=== PATIENT | female | born 1970 | race Hispanic/Latino ===

== ENCOUNTER 2018-06-15 17:17 | Emergency (ER) | payer SELFPAY ==
[2018-06-15 18:06] VITALS: BP 124/71
[2018-06-15] MEDS ORDERED: MOTRIN PO ONE (20:25)
[2018-06-15] MEDS ORDERED: NORCO 5/325 PO ONE (20:25)
--- NOTE | 2018-06-15 20:30 | Emergency Department Report ---
HPI - General Chief Complaint: Dental/Oral Time Seen by Provider: 06/15/18 20:25 - HPI HPI: Room 35 The patient is a 47-year-old female presenting with a chief complaint dental pain. The patient states she broke one of her teeth and her sleep approximately 3 days ago. Patient states she's had continuous pain of tooth # 32 since the event. Patient states the pain radiates to the ear. Patient is to subjective fever. Patient states she has not yet seen a dentist. The patient currently gives her pain a score of 5/10 Location: [See above] Duration: [See above] Quality: Pain Severity: Last 10 Modifying factors: [see above] Context: [see above] Mode of transportation: [not driving] ED Past Medical Hx - Past Medical History Previous Medical History?: No - Surgical History Additional Surgical History: , left eye - Family History Family history: no significant - Social History Smoking Status: Former Smoker (none for over 10 years) Substance Use Type: None (denies illicit drug use) - Medications Home Medications: Home Medications Medication Instructions Recorded Confirmed Last Taken Type Amoxicillin [Amoxicillin TAB] 875 mg PO BID #20 tablet 04/09/14 Unknown Rx Prednisone [Prednisone 10 mg 10 mg PO .TAPER #1 tab.ds.pk 04/09/14 Unknown Rx (6-Day Pack, 21 Tabs)] Amoxicillin 500 mg PO BID #14 capsule 06/15/18 Unknown Rx HYDROcodone/APAP 5-325 [[place] 1 - 2 each PO Q6HR PRN #14 tablet 06/15/18 Unknown Rx 5/325] Ibuprofen [Motrin 800 MG tab] 800 mg PO Q8HR PRN #20 tablet 06/15/18 Unknown Rx ED Review of Systems ROS: Stated complaint: TOOTH PAIN Other details as noted in HPI Constitutional: fever (subjective) Eyes: denies: eye pain ENT: dental pain Respiratory: no symptoms reported Cardiovascular: denies: chest pain Endocrine: no symptoms reported Gastrointestinal: denies: abdominal pain Genitourinary: denies: dysuria Musculoskeletal: denies: back pain Neurological: denies: headache Physical Exam - Physical Exam Vital Signs: Vital Signs 06/15/18 18:02 Temperature 98.3 F Pulse Rate 108 H Respiratory 18 Rate Blood Pressure 124/71 O2 Sat by Pulse 98 Oximetry Physical Exam: GENERAL: The patient is well-developed well-nourished female lying on stretcher not appearing to be in acute distress. [] HEENT: Normocephalic. Atraumatic. Tooth #32 has central disruption with evidence of caries. Multiple other missing teeth and caries present. No region of fluctuance seen NECK: Supple. No meningitic signs are noted. There is right-sided cervical adenopathy noted. CHEST/LUNGS: There is no respiratory distress noted. HEART/CARDIOVASCULAR: Regular. There is no tachycardia. There is no gallop rub or murmur. SKIN: There is no rash. There is no edema. There is no diaphoresis. NEURO: The patient is awake, alert, and oriented. The patient is cooperative. The patient has no focal neurologic deficits. The patient has normal speech MUSCULOSKELETAL:There is no evidence of acute injury. ED Course Vital Signs 06/15/18 18:02 Temperature 98.3 F Pulse Rate 108 H Respiratory 18 Rate Blood Pressure 124/71 O2 Sat by Pulse 98 Oximetry ED Medical Decision Making - Differential Diagnosis dental pain Critical care attestation.: If time is entered above; I have spent that time in minutes in the direct care of this critically ill patient, excluding procedure time. ED Disposition Clinical Impression: Acute oral pain, Dental caries Disposition: DC- TO HOME OR SELFCARE Is pt being admited?: No Does the pt Need Aspirin: No Condition: Stable Instructions: Dental Caries (ED), Toothache (ED) Additional Instructions: Return to the emergency department immediately should you develop worsening symptoms, fever, inability to tolerate food or liquid or any other concerns. Prescriptions: Amoxicillin 500 mg PO BID #14 capsule HYDROcodone/APAP 5-325 [[place] 5/325] 1 - 2 each PO Q6HR PRN #14 tablet PRN Reason: Pain Ibuprofen [Motrin 800 MG tab] 800 mg PO Q8HR PRN #20 tablet PRN Reason: Pain, Moderate (4-6) Referrals: [facility] [Outside] - 3-5 Days Time of Disposition: 20:32
== END 2018-06-15 20:46 | disposition home or self-care (01) ==
LOC: ED 17:17
DX: K02.9 Dental caries, unspecified (principal); Z87.891 Personal history of nicotine dependence
CPT/HCPCS: 99282